=== PATIENT | female | born 1945 | race Caucasian/White ===

== ENCOUNTER 2017-09-06 11:31 | Day surgery (SDC) | payer MEDICARE, BC, OTHER ==
[~2017-09-06] VITALS: Ht 165.1 cm; Wt 94.3 kg
[~2017-09-06 11:31] MED LIST: /ESOM40CA; ACET500C; ACET65TA; ACETAMINOPHEN 325 MG TAB PO PRN; AFRI0.65; ALBU17IN2; ALBU83IN; BIMA01SOL OU; CETI10TA; EPI PEN; EPI-PEN; EPIP0.3I2 IM; ESOM1CAP5 PO; ESTR62CR; FENO67CA2 PO; FLUC10TA; GATIFLOXACIN; KEFL500C; LEVA500T; LEVO150T7 PO; LEVO175T2 PO; LEVO25TABR; LISI10TA4 PO; LISI2.5T; LISI5TAB; METO25TA4 PO; MOME50SP; MONISTAT; OFLOXACIN 0.3 % (OCUFLOX) OPTH SOL 5ML OD ONE; PHENYLEPHRINE 2.5% OPHTH SOL 2ML OD ONE; PROPARACAINE 0.5% OPHTH SOL 15ML OD ONE; SUDA30TA; SYNTHROID; TROPICAMIDE 1% OPHTH SOLN 2ML OD ONE; TYLE500T78 PO; ZYRT10TA2 PO
[2017-09-06] MEDS ORDERED: TRIMETHOBENZAMIDE 300 MG CAP PO PRN (11:45)
[2017-09-06] MEDS ORDERED: VITA2000 PO (13:35)
[2017-09-06] MEDS ORDERED: VITA1TAB27 PO (13:35)
[2017-09-06] MEDS ORDERED: BALANCED SALT IRRIGATION SOLUTION 500ML BAG (FOR OR EYE MACHINE) As Ordered ONE (14:01)
[2017-09-06] MEDS ORDERED: ACETYLCHOLINE OPHTH SOLN 1% 2ML (MIOCHOL-E) As Ordered ONE (14:01)
[2017-09-06] MEDS ORDERED: POVIDONE-IODINE 5% OPHTH PREP SOL 30ML As Ordered ONE (14:01)
[2017-09-06] MEDS ORDERED: LIDOCAINE 0.75%/EPINEPHRINE 0.025% IN BSS 1ML SYR INTRACAMERAL (OR ONLY) As Ordered ONE (14:02)
[2017-09-06] MEDS ORDERED: DUOVISC (0.50ML VISCOAT/0.55ML PROVISC) OPHTH KIT As Ordered ONE (14:02)
[2017-09-06] MEDS ORDERED: MIDAZOLAM INJ 2 MG/2 ML VIAL (J2250) As Ordered ONE (14:07)
[2017-09-06] MEDS ORDERED: fentaNYL 100 MCG/2 ML INJECTION (J3010) As Ordered ONE (14:07)
[2017-09-06] MEDS ORDERED: ACETAMINOPHEN 500 MG TAB As Ordered ONE (15:34)
[2017-09-06] MEDS ORDERED: ACETAMINOPHEN 500 MG TAB PO ONE (15:45)
[2017-09-06 16:05] VITALS: BP 150/80
--- NOTE | 2017-09-08 10:45 | RO ---
DATE OF PROCEDURE: 09/06/2017 PREOPERATIVE DIAGNOSES: 1. Visually significant nuclear sclerotic cataract right eye. 2. Glaucoma. POSTOPERATIVE DIAGNOSES: 1. Visually significant nuclear sclerotic cataract right eye. 2. Glaucoma. PROCEDURE: 1. Extracapsular extraction with phacoemulsification and intraocular lens implant with monofocal lens, AU00T0, 18.0 diopters right eye. 2. Use of endoscopic cyclophotocoagulation, right eye, (0.25/continuous mode/9 shots) SURGEON: Clarence Tucker DO [employer]: ANESTHESIA: Local with monitored anesthesia care (MAC). COMPLICATIONS: None. POSTOPERATIVE CONDITION: Stable. INDICATION FOR SURGERY: Blurred vision right eye affecting patient's activities of daily living. DESCRIPTION OF PROCEDURE: The patient was seen in the preoperative area and properly identified. The correct operative eye was identified and marked. Attention was turned to that eye. The patient received topical antibiotics in the preoperative area. The patient then received topical dilating drops consisting of tropicamide and phenylephrine. The patient was then transferred to the operating room. The correct side was re-identified. The patient received topical anesthetics and antibiotics on the surface of the eye. The eye was prepped and draped in a sterile fashion. The upper and lower eyelids were isolated with Tegaderm tape, and the lids were held open with an adjustable speculum. Using a sideport blade, a paracentesis incision was made. Intraocular preservative-free lidocaine was then injected into the anterior chamber. Viscoelastic was then injected into the anterior chamber through the paracentesis. Using a 2.4 mm sharp-tipped keratome, the anterior chamber was entered via a temporal clear corneal incision. A continuous curvilinear capsulorrhexis was created with the aid of a 26-gauge cystotome and Utrata forceps. Hydrodissection was performed with balanced salt solution (BSS) on a blunt cannula until the nucleus was freely mobile. The crystalline lens was phacoemulsified and aspirated. Additional cohesive viscoelastic was placed into the capsular bag to deepen it. A AU00T0, 18.0 diopters lens was placed into the capsular bag and confirmed by visualizing the continuous curvilinear capsulorrhexis. After the implant was placed within the capsular bag, additional viscoelastic was placed in the anterior chamber and ciliary sulcus. Endoscopic cyclophotocoagulation probe was placed through the temporal clear corneal incision. The ciliary processes were visualized and the laser was applied for 270 degrees. The laser probe was then withdrawn from the eye. Irrigation aspiration was used to remove viscoelastic from the eye. Balanced salt solution (BSS) was used to hydrate the temporal clear corneal incisions and paracentesis incisions. Miochol was placed showing a moderately small pupil. A weck spear was used to test the primary incision for leaks and none were found. The eyelid speculum was removed and the drape was removed. A shield was placed over the eye. The patient was discharged to the postanesthesia care unit (PACU) in stable condition. GIOVANNI
== END 2017-09-06 16:10 | disposition home or self-care (01) ==
LOC: M SDC 11:31
PROVIDERS: ATTEND Ophthalmology
DX: H25.11 Age-related nuclear cataract, right eye (principal); H40.811 Glaucoma with increased episcleral venous pressure, right eye; E03.9 Hypothyroidism, unspecified; I10 Essential (primary) hypertension; E78.5 Hyperlipidemia, unspecified; M10.9 Gout, unspecified; Z79.51 Long term (current) use of inhaled steroids; Z79.899 Other long term (current) drug therapy; Z91.030 Bee allergy status; Z88.0 Allergy status to penicillin; Z88.2 Allergy status to sulfonamides; Z88.8 Allergy status to other drugs, medicaments and biological substances; F41.9 Anxiety disorder, unspecified; F32.9 Major depressive disorder, single episode, unspecified
CPT/HCPCS: 66711; 66984; J2250; J3010; V2632

== ENCOUNTER → 2021-05-06 | Outpatient (REF) | payer MEDICARE, OTHER, BC ==
[~2021-05-06] MED LIST changes: -/ESOM40CA; -ACETAMINOPHEN 325 MG TAB PO PRN; +LISI10TA22 PO; -LISI10TA4 PO; +NEXI1CAP3; -OFLOXACIN 0.3 % (OCUFLOX) OPTH SOL 5ML OD ONE; -PHENYLEPHRINE 2.5% OPHTH SOL 2ML OD ONE; -PROPARACAINE 0.5% OPHTH SOL 15ML OD ONE; -TROPICAMIDE 1% OPHTH SOLN 2ML OD ONE; +VITA1TAB27 PO; +VITA2000 PO; +ZYRT10CA5 PO; -ZYRT10TA2 PO
== END ==
LOC: M LAB REF 21:25
PROVIDERS: ATTEND Physician Assistant
DX: R30.0 Dysuria (principal)

== ENCOUNTER → 2021-06-30 | Outpatient (REF) | payer MEDICARE, OTHER, BC ==
[~2021-06-30] MED LIST changes: -FENO67CA2 PO; +FENO67CA6 PO
== END ==
LOC: M LAB REF 16:31
PROVIDERS: ATTEND Physician Assistant
DX: N39.0 Urinary tract infection, site not specified (principal)

== ENCOUNTER → 2023-07-26 | Outpatient (REF) | payer MEDICARE, OTHER ==
[~2023-07-26] MED LIST changes: +FENO67CA16 PO; -FENO67CA6 PO; -MOME50SP; +NASO50SP3
== END ==
LOC: M LAB REF 14:43
PROVIDERS: ATTEND Physician Assistant Medical
DX: J32.0 Chronic maxillary sinusitis (principal)